=== PATIENT | female | born 1955 | race Caucasian/White ===

== ENCOUNTER 2018-04-09 20:41 | Emergency (ER) | payer OTHER ==
[~2018-04-09] VITALS: Ht 167.6 cm; Wt 65.0 kg
[2018-04-09] MEDS ORDERED: ROBAXIN-750750 MG PO (21:39)
[2018-04-09] MEDS ORDERED: MELOXICAM7.5 MG PO (21:39)
[2018-04-09] MEDS ORDERED: PEPCID20 MG PO (21:39)
== END 2018-04-09 21:49 | disposition home or self-care (01) ==
LOC: FSED 20:41
DX: M25.512 Pain in left shoulder (principal); S46.012A Strain of muscle(s) and tendon(s) of the rotator cuff of left shoulder, initial encounter; X50.0XXA Overexertion from strenuous movement or load, initial encounter; Y99.0 Civilian activity done for income or pay; F17.210 Nicotine dependence, cigarettes, uncomplicated
CPT/HCPCS: 99283